=== PATIENT | male | born 1950 | race Hispanic/Latino ===

== ENCOUNTER 2017-07-21 01:13 | Emergency (ER) | payer OTHER ==
[~2017-07-21] VITALS: Ht 170.2 cm; Wt 96.7 kg
[~2017-07-21 01:13] MED LIST: BACTRIM,SEPT1 TABLET PO; CIPRO250 MG PO; FLOMAX0.4 MG PO; PERCOCET 5/31 TABLET PO; PYRIDIUM200 MG PO; RAPAFLO8 MG PO; TAMSULOSIN HCL0.4 MG PO; TRAMADOL HCL50 MG PO
[2017-07-21 01:39] LABS: HEMATOCRIT 41.9 % (38.0-50.0); HEMOGLOBIN 14.3 G/DL (12.5-16.6); MCH 30.6 PG (29.0-34.0); MCHC 34.1 G/DL (30.0-36.0); MCV 89.7 FL (86-99); PLATELET COUNT 427 K/uL (156-360); RBC DIS.WIDTH-CV 12.4 % (11.8-14.6); RBC DIS.WIDTH-SD 41.1 % (39-53); RED BLOOD COUNT 4.67 M/uL (4.00-5.50); WHITE BLOOD COUNT 8.6 K/uL (4.1-10.2)
[2017-07-21 01:48] LABS: CHLORIDE 101 mEq/L (99-109); POTASSIUM 4.4 mEq/L (3.7-5.4); SODIUM 135 mEq/L (136-147)
[2017-07-21 01:50] LABS: GLUCOSE 134 mg/dL (70-99)
[2017-07-21 01:54] LABS: CREATININE 1.1 mg/dL (0.6-1.3); GFR ESTIMATE (CALCULATED) > 59 mL/min/ (58.99-99999)
[2017-07-21 01:55] LABS: UREA NITROGEN (BUN) 15 mg/dL (9-23)
[2017-07-21 01:59] LABS: APPEARANCE TURBID ((CLEAR)); BILIRUBIN NEGATIVE; BLOOD LARGE; GLUCOSE (STRIP) 50; KETONES 5; LEUKOCYTES NEGATIVE; NITRITE NEGATIVE; PROTEIN (STRIP) 100; SPECIFIC GRAVITY 1.023 (1.000-1.030); UROBILINOGEN 0.2 MG/DL (0.2-1.0)
[2017-07-21 02:01] LABS: COLOR RED ((YELLOW))
[2017-07-21 02:25] LABS: RED BLOOD CELLS TNTC /HPF (0-5); UCUL ADDED? YES
[2017-07-21] MEDS ORDERED: KEFLEX500 MG PO ×2 (02:37→02:41)
[2017-07-21 03:05] VITALS: BP 157/85
== END 2017-07-21 03:09 | disposition home or self-care (01) ==
LOC: EME 01:13
DX: R31.9 Hematuria, unspecified (principal); N40.0 Benign prostatic hyperplasia without lower urinary tract symptoms; R30.0 Dysuria; Z88.1 Allergy status to other antibiotic agents; F17.200 Nicotine dependence, unspecified, uncomplicated
CPT/HCPCS: 80048; 81003; 85027; 87086; 99281; 99284